=== PATIENT | female | born 1995 | race Caucasian/White ===

== ENCOUNTER 2025-05-19 10:56 | Outpatient (REF) | payer MEDICAID, SELFPAY ==
--- OUTSIDE RECORDS SUMMARY | 2025-05-19 09:15 | XMS_ITS | Encounter Summary ---
Author Organization [employer] Address [address] [facility] 7 [place] [address] Care Team Providers Care Credentialing Specialist Name Role Phone Jenny Moore DO Primary Care Provider [phone] Encounter Details Date Type Department Care Team (Late st Contact Info) Description 05/19/2025 9:15 AM EST Office Visit [facility] [address], [place] [phone] Jenny Moore DO [address] [place], [place] [phone] Routine history and physical examination of adult (Primary Dx); Sensorineural hearing loss (SNHL) of both ears; BMI 24.0-24.9, adult Social History Tobacco Use Types Packs/Day Years Used Date Smoking Tobacco: Never Smokeless Tobacco: Never Tobacco Cessation:Counseling Given: Not Answered Depression Answer Date Recorded Patient Health Questionnaire-9 Score 10 05/19/2025 Patient Health Questionnaire-9 Score 10 05/19/2025 Last PHQ-9: Questionnaire Data Not on file 1 07/20/2024 Depression Answer Date Recorded Patient Health Questionnaire-2 Score 3 05/19/2025 Comments No Sex and Gender Information Value Date Recorded Sex Assigned at Unknown 05/06/2025 9:02 AM EST Legal Sex Female 12:05 PM EDT Gender Identity Choose not to disclose 9:02 AM EST Sexual Orientation Don't know 05/06/2025 9: 02 AM EST documented as of this encounter Last Filed Vital Signs Vital Sign Reading Time Taken Comments Blood Pressure 118/70 05/19/2025 9:19 AM EST Pulse 89 05/19/2025 9:19 AM EST Temperature 36.9 C (98.4 F) 05/19/2025 9:19 AM EST Respiratory Rate 21 05/19/2025 9:19 AM EST Oxygen Saturation 100% 05/19/2025 9:19 AM EST Inhaled Oxygen Concentration - - Weight 64.4 kg (142 lb) 05/19/2025 9:19 AM EST Height 162.6 cm (5' 4 ) 05/19/2025 9:19 AM EST Body Mass Index 24.37 05/19/2025 9:19 AM EST documented in this encounter Functional Status * Over the past 2 weeks, how often have you been bothered by any of the following problems? Question Answer Date of Assessment Author Patient Health Questionnaire -2 Score 3 05/19/2025 10:17 AM EST Armida Boyce MA * Little interest or pleasure in doing things Answer Date of Assessment Author More than half the days 05/19/2025 10:17 AM EST Armida Boyce MA * Feeling down, depressed, or hopeless Answer Date of Assessment Author Several days 05/19/2025 10:17 AM EST Armida Boyce MA * Trouble falling or staying asleep, or sleeping too much Answer Date of Assessment Author Not at all 05/19/2025 10:17 AM EST Armida Boyce MA * Feeling tired or having little energy Answer Date of Assessment Author Not at all 05/19/2025 10:17 AM EST Armida Boyce MA * Poor appetite or overeating Answer Date of Assessment Author Nearly every day 05/19/2025 10:17 AM EST Armida Boyce MA * Feeling bad about yourself - or that you are a failure or have let yourself or your family down Answer Date of Assessment Author Nearly every day 05/19/2025 10:17 AM EST Armida Boyce MA * Trouble concentrating on things, such as reading the newspaper or watching television Answer Date of Assessment Author Not at all 05/19/2025 10:17 AM Armida Gray MA * Moving or speaking so slowly that other people could have noticed? Or the opposite - being so fidgety or restless that you have been moving around a lot more than usual. Answer Date of Assessment Author Several days 05/19/2025 10:17 AM Armida Gray MA * Thoughts that you would be better off or hurting yourself in some way Answer Date of Assessment Author Not at all 05/19/2025 10:17 AM Armida Gray MA * Patient Health Questionnaire-9 Score Answer Date of Assessment Author 10 05/19/2025 10:17 AM Armida Gray MA * Over the last 2 weeks, how often have you been bothered by any of the following problems? Question Answer Date of Assessment Author Feeling nervous, anxious, or on edge 0 05/19/2025 10:16 AM Armida Gray MA Not being able to stop or co ntrol worrying 0 05/19/2025 10:16 AM Armida Gray MA Worrying too much about diff erent things 1 05/19/2025 10:16 AM Armida Gray MA Trouble relaxing 0 05/19/2025 10:16 AM Armida Gray MA Being so restless that it is hard to sit still 0 05/19/2025 10:16 AM Armida Gray MA Becoming easily annoyed or irritable 1 05/19/2025 10:16 AM Armida Gray MA Feeling afraid as if somethi ng awful might happen 0 05/19/2025 10:16 AM Armida Gray MA JEFE-7 Total Score 2 05/19/2025 10:16 AM Armida Gray MA * How difficult have these problems made it for you to do your work, take care of things at home, or get along with other people? Answer Date of Assessment Author Somewhat difficult 05/19/2025 10:17 AM Armida Franklin MA documented as of this encounter Plan of Treatment Scheduled Orders Name Type Priority Associated Diagnoses Orde r Schedule T4, Free Lab Routine Routine history and physical examination of adult Expected: 05/19/2025 (Approximate), Expires: 05/19/2026 Lipid Panel, Standard Lab Routine Routine history and physical examination of adult Expected: 05/19/2025 (Approximate), Expires: 05/19/2026 TSH Lab Routine Routine history and physical examination of adult Expected: 05/19/2025 (Approximate), Expires: 05/19/2026 Vitamin D, 25-Hydroxy, Total, Immunoassay Lab Routine Routine history and physical examination of adult Expected: 05/19/2025 (Approximate), Expires: 05/19/2026 Hepatic Function Panel Lab Routine Routine history and physical examination of adult Expected: 05/19/2025 (Approximate), Expires: 05/19/2026 Hemoglobin A1c Lab Routine Routine history and physical examination of adult Expected: 05/19/2025 (Approximate), Expires: 05/19/2026 CBC Lab Routine Routine history and physical examination of adult Expected: 05/19/2025, Expires: 05/19/2026 Basic Metabolic Panel Lab Routine Routine history and physical examination of adult Expected: 05/19/2025 (Approximate), Expires: 05/19/2026 Hepatitis B surface antigen, EIA Lab Routine Routine history and physical examination of adult Expected: 05/19/2025 (Approximate), Expires: 05/19/2026 Chlamydia/N. Gonorrhoeae RNA, TMA, Urogenitial Microbiology Routine Routine history and physical examination of adult Ordered: 05/19/2025 HIV-1/2 Antigen and Antibodies, Fourth Generation, with Reflexes Lab Routine Routine history and physical examination of adult Expected: 05/19/2025 (Approximate), Expires: 05/19/2026 Hepatitis C Antibody with Reflex to HCV, RNA, Quantitative, Real-Time PCR Lab Routine Routine history and physical examination of adult Expected: 05/19/2025, Expires: 05/19/2026 RPR (Monitor) with Reflex to Titer Lab Routine Routine history and physical examination of adult Expected: 05/19/2025, Expires: 05/19/2026 Hepatitis B Surface Antibody, Qualitative Lab Routine Routine history and physical examination of adult Expected: 05/19/2025 (Approximate), Expires: 05/19/2026 Varicella zoster antibody, IgG Lab Routine Routine history and physical examination of adult Expected: 05/19/2025 (Approximate), Expires: 05/19/2026 Measles, Mumps, and Rubella (MMR) Antibodies (IgG) Panel, Immune Status Lab Routine Routine history and physical examination of adult Expected: 05/19/2025 (Approximate), Expires: 05/19/2026 Herpes Simplex Virus 1 and 2 (IgG), Type-Specific Antibodies Lab Routine Routine history and physical examination of adult Expected: 05/19/2025 (Approximate), Expires: 05/19/2026 Hepatitis A Antibody, Total Lab Routine Routine history and physical examination of adult Expected: 05/19/2025 (Approximate), Expires: 05/19/2026 Hepatitis B Core Antibody, Total Lab Routine Routine history and physical examination of adult Expected: 05/19/2025 (Approximate), Expires: 05/19/2026 T-SPOT .TB Lab Routine Routine history and physical examination of adult Expected: 05/19/2025 (Approximate), Expires: 05/19/2026 documented as of this encounter Visit Diagnoses Diagnosis Routine history and physical examination of adult- Primary Sensorineural hearing loss (SNHL) of both ears BMI 24.0-24.9, adult documented in this encounter Additional Health Concerns Assessment Noted Time PHQ-9 Depression Total Score: 10 025 10:17 AM EST documented as of this encounter Care Teams Credentialing Specialist Relationship Specialty Start Date End Date Jenny Moore DO [address] [place] [id number] PCP - General Family Medicine 05/19/25 documented as of this encounter
[2025-05-19 13:53] LABS: Hematocrit 39.2 % (37.0-47.0); Hemoglobin 12.4 g/dl (12.0-16.0); Mean Corpuscular HGB Conc 31.6 g/dl (31.0-35.0); Mean Corpuscular Hemoglobin 25.9 pg (27.0-33.0); Mean Corpuscular Volume 81.8 fL (80.0-98.0); NRBC Abs Auto 0.000 X10*3/uL (0.0-0.012); NRBC Pct Auto 0.0 /100WBC (0.0-0.2); Platelet Count 461 X10*3/uL (160-400); Red Blood Count 4.79 X10*6/uL (4.20-5.50); White Blood Count 8.7 X10*3/uL (4.8-10.8)
--- OUTSIDE RECORDS SUMMARY | 2025-05-19 13:53 | XMS_ITS | Clinical Summary ---
Author Organization [address] Address [address] [place] [phone] Care Team Providers Care Cavalry Scout Name Role Phone No, Pcp (Do Not Change Name) Primary Care Provid er Unavailable Allergies No known active allergies Medications ondansetron (ZOFRAN) 4 mg tablet Take 1 tablet (4 mg total) by mouth every 12 (twelve) hours as needed for nausea. 12 tablet Active Additional Information Patient not taking.Reported on 12/09/2021 Active Problems Problem Noted Date Diagnosed Date Sensorineural hearing loss (SNHL) of both ears 0 09/30/2021 Social History Tobacco Use Types Packs/Day Years Used Date Smoking Tobacco: Never Alcohol Use Standard Drinks/Week Comments Never 0 (1 standard drink = 0.6 oz pur e alcohol) Comments Unknown Sex and Gender Information Value Date Recorded Sex Assigned at Female 06/28/2021 11:51 AM EST Legal Sex Female 11:20 AM EDT Gender Identity Female 06/28/2021 11:51 AM EST Sexual Orientation Straight 06/28/2021 11 :51 AM EST Last Filed Vital Signs Vital Sign Reading Time Taken Comments Blood Pressure 125/80 12/09/2021 10:06 AM EDT Pulse 90 12/09/2021 10:06 AM EDT Temperature 36.2 C (97.2 F) 12/09/2021 10:06 AM EDT Respiratory Rate 18 11/18/2020 6:44 PM EDT Oxygen Saturation 99% 12/09/2021 10:06 AM EDT Inhaled Oxygen Concentration - - Weight 64.4 kg (142 lb) 12/09/2021 10:06 AM EDT Height 162.6 cm (5' 4 ) 11/18/2020 6:44 PM EDT Body Mass Index 24.37 11/18/2020 6:44 PM EDT Plan of Treatment Health Maintenance Due Date Last Done Comments HIV screening 11/30/2008 Hepatitis C screening 11/30/2013 Cervical cancer screening 09/02/2023 09/01/2020 Influenza vaccine 12/27/2024 07/02/2018 Covid-19 vaccine series ( season) 2025 Tetanus adult (Td q 10,TDAP once) 07/30/2028 019 RSV Immunization (1 - 1-dose 75+ series) 11/30/2070 Meningococcal B Vaccine Aged Out No l onger eligible based on patient's age to complete this topic Meningococcal Vaccine Aged Out No basil jose a eligible based on patient's age to complete this topic Pneumococcal Vaccine (2 - 49 years) Aged Out No longer eligible b ased on patient's age to complete this topic Insurance [id number] Care Teams Cavalry Scout Relationship Specialty Start Date End Date No, Pcp (Do Not Change Name) PCP - General 03/17/20
--- OUTSIDE RECORDS SUMMARY | 2025-05-19 13:53 | XMS_ITS | Encounter Summary ---
Author Organization [employer] Address [address] [facility] 7 [place] [address] Care Team Providers Care Dock Worker Name Role Phone Jenny Moore DO Primary Care Provider [phone] Reason for Visit * Reason Comments Care Coordination CHW outreach for SDO H housing search-referral completed Encounter Details Date Type Department Care Team (Latest Contact Info) Description 05/19/2025 Patient Outreach [facility] [address] [place], [place] [phone] Jenny Moore DO [address] [place] [address] Care Coordination (CHW outreach for SDOH housing search-referral completed ) Social History Tobacco Use Types Packs/Day Years Used Date Smoking Tobacco: Never Smokeless Tobacco: Never Depression Answer Date Recorded Patient Health Questionnaire-9 [...] AM EST documented as of this encounter Progress Notes * Yamil Black - 05/19/2025 1:03 PM EST CHW Yamil Black, placed outbound call to patient for assistance with SDOH as a referral was received by the provider. Patient's name and were confirmed. Patient screened positive for the following SDOH housing insecurities. CHW referral patient to the list of application mail out to her email address on file. Patient verbalizes understanding, and able to agree with plan to follow up herself. Patient educated on extended clinic hours on Mondays through Wednesdays, and [facility] Lobby of [facility]. Patient provided with after-hours line for [facility], , which offer night time triage service and option to transfer to conference specialist provider if needed. documented in this encounter Plan of Treatment Not on file documented as of this encounter Visit Diagnoses Not on filedocumented in this encounter Additional Health Concerns Assessment Noted Time PHQ-9 Depression Total Score: 10 025 10:17 AM EST documented as of this encounter Care Teams Dock Worker Relationship Specialty Start Date End Date Jenny Moore DO [address] [place] [phone] PCP - General Family Medicine 05/19/25 documented as of this encounter
--- OUTSIDE RECORDS SUMMARY | 2025-05-19 13:53 | XMS_ITS | Clinical Summary ---
Author Organization [employer] Address [address] [place] [address] 7 [place] [address] Care Team Providers Care Data Transcriber Name Role Phone Jenny Moore DO Primary Care Provider [phone] Allergies No known active allergies Active Problems Problem Noted Date Diagnosed Date Generalized anxiety disorder with panic attacks 05/19/2025 Moderate episode of recurren t major depressive disorder (CMS/HCC) 05/19/2025 PTSD (post-traumatic stress disorder) 05/19/2025 Sensorineural hearing loss (SNHL) of both ears 0 09/30/2021 Encounters * This document contains information received from the source organization and may not represent a complete record from that organization. Date Type Department Care Team Description 05/19/2025 9:15 AM EST Office Visit [address] [id number] Jenny Moore DO Routine history and physical examination of adult (Primary Dx); Sensorineural hearing loss (SNHL) of both ears; BMI 24.0-24.9, adult 05/19/2025 Patient Outreach [address] [phone] Jenny Moore DO Care Coordination (CHW outreach for SDOH housing search-referral completed ) 05/19/2025 Travel 05/16/[address] [address] Jenny Moore DO Chart Prep 05/12/2025 Travel 05/08/2025 Patient Outreach [address] [address] Jenny Moore DO Pre-visit Planning ((Unable to reach for PVP screening, LVM) to be completed in office ) 04/30/[address] [facility] () Department [address] [place] [phone] Provider, Population Health Generic 04/11/2025 Telephone [facility] [address] [place] [address] Kade Esquivel MD Appointment Request 03/28/2025 Telephone [facility] [address] [place], [place] [phone] aKde Esquivel MD telephone call from Last 3 Months Immunizations Immunization Administration Dates Next Due DTaP 05/15/2000, 7,09/11/1996,04/19,02/01/1996 HPV, Quadrivalent 03/25/2011,02/19/2010,01/28/20 09 Hep B, Unspecified 04/09/1997,02/01/1996, 996 HepB-CpG 03/28/2025,03/02/2023 HiB, unspecified 04/09/1998, 7,04/19/1996,01/31 IPV 05/15/2000, 7,04/19/1996,01/31 Influenza Injectable Quadriv alant Preservative Free IIV4 MDCK 09/01/2020 Influenza Whole 05/15/2000 Influenza, seasonal, injecta ble, preservative free 03/28/2025,04/01/2013,03/25/2011 MMR 01/07/2002,05/15/2000 Meningococcal MPSV4 01/27/2009 Pneumococcal Conjugate PCV 7 05/15/2000 Tdap 03/28/2025,,01/16/2017,01/27 Varicella 03/25/2011,08/23/1997 Social History Tobacco Use Types Packs/Day Years [...] Don't know 05/06/2025 9: 02 AM EST Last Filed Vital Signs Vital [...] Mass Index 24.37 05/19/2025 9:19 AM EST Plan of Treatment Health Maintenance Due Date Last Done Comments HIV Screening 1995 SDOH Screening 1995 Family Planning (PISQ) 11/30/2010 Hepatitis C Screening 11/30/2013 Pap Smear 11/30/2016 Depression Monitoring 11/17/2025 05/19/2025, 025 Disability Screening 05/12/2026 05/12/2025 Alcohol/Substance Use Screening 05/19/2026 05/19/2025 Tobacco Screening 05/19/2026 05/19/2025 DTaP/Tdap/Td Vaccines (10 - Td or Tdap) 03/28/2035 03/28/2025, 01/07/2021, 01/16/2017, Additional history exists Zoster Vaccines (1 of 2) 11/30/2045 RSV Patients and Patients Aged 60 years or older (1 - 1-dose 75+ series) 11/30/2070 HIB Vaccines Completed 04/09/1998, 08/27, 04/19/1996, Additional history exists IPV Vaccines Completed 05/15/2000, 03/29, 04/19/1996, Additional history exists Pneumococcal Vaccine: Pediatrics (0 to 5 Years) and At-Risk Patients (6 to 49) Years Aged Out 05/15/2000 No longer eligible based on patient's age to complete this topic Meningococcal Vaccine Aged Out 01/27/2009 No basil jose a eligible based on patient's age to complete this topic HPV Vaccines Completed 03/25/2011, 01/28, 01/27/2009 COVID-19 Vaccine Completed 03/28/2025, 06/2020, 10/07/2020 Hepatitis B Vaccines Completed 03/28/2025, 03/02/2023, 04/09/1997, Additional history exists Influenza Vaccine Completed 03/28/2025, , 04/01/2013, Additional history exists Hepatitis A Vaccines Aged Out No long er eligible based on patient's age to complete this topic Meningococcal B Vaccine Aged Out No l onger eligible based on patient's age to complete this topic RSV under 20 months Aged Out No longe r eligible based on patient's age to complete this topic Rotavirus Vaccines Aged Out No longer eligible based on patient's age to complete this topic Insurance [facility] C3 Care Teams Data Transcriber Relationship Specialty Start Date End Date Jenny Moore DO [address] [place] [address] PCP - General Family Medicine 05/19/25
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
--- OUTSIDE RECORDS SUMMARY | 2025-05-19 13:53 | XMS_ITS ---
[facility] Name [facility] Organization Unknown Results Test Name/Text Value Interpretation Date Range Source HCG SerPl-aCnc 32403.0 mIU/mL Normal 05/18/2024 [facility] Calcium SerPl-mCnc 9.2 mg/dL Normal 05/18/2024 8.4 - 10.2 [facility] eGFRcr SerPlBld CKD-EPI 2020 121.0 mL/min/1.73m2 Normal 05/18/2024 - [facility] ALP SerPl-cCnc 55.0 unit/L Normal 05/18/2024 34 - 104 [facility] Sodium SerPl-sCnc 132.0 mmol/L Below low normal 05/18/2024 1 35 - 145 [facility] Potassium SerPl-sCnc 4.0 mmol/L Normal 05/18/2024 3.5 - 5 .1 [facility] AST SerPl-cCnc 14.0 unit/L Normal 05/18/2024 5 - 40 [facility] Albumin SerPl-mCnc 4.4 g/dL Normal 05/18/2024 3.5 - 5 [facility] Anion Gap SerPl-sCnc 6.0 Normal 05/18/2024 5 - 14 [facility] Glucose SerPl-mCnc 89.0 mg/dL Normal 05/18/2024 70 - 199 [facility] Prot SerPl-mCnc 7.5 g/dL Normal 05/18/2024 6.4 - 8.5 [facility] Bilirub SerPl-mCnc 0.6 mg/dL Normal 05/18/2024 0.3 - 1 [facility] Chloride SerPl-sCnc 101.0 mmol/L Normal 05/18/2024 98 - 1 07 [facility] Creat SerPl-mCnc 0.7 mg/dL Normal 05/18/2024 0.5 - 1 [facility] CO2 SerPl-sCnc 25.0 mmol/L Normal 05/18/2024 24 - 32 [facility] ALT SerPl-cCnc 10.0 unit/L Normal 05/18/2024 7 - 52 [facility] BUN SerPl-mCnc 11.0 mg/dL Normal 05/18/2024 7 - 17 [facility] BUN/Creat SerPl 15.7 Normal 05/18/2024 12 - 20 [facility] Magnesium SerPl-mCnc 1.9 mg/dL Normal 05/18/2024 1.7 - 2. 8 [facility] Platelet # Bld Auto 362.0 K/mcL Normal 05/18/2024 150 - 4 50 [facility] Basophils/leuk NFr Bld Auto 0.2 % Normal 05/18/2024 0 - 2 [facility] RDW RBC Auto-Rto 18.1 % Above high normal 05/18/2024 12.1 - 16.2 [facility] Neutrophils # Bld Auto 5.6 K/mcL Normal 05/18/2024 1.8 - 7.8 [facility] Lymphocytes/leuk NFr Bld Auto 21.7 % Normal 05/18/2024 20 - 48 [facility] MCHC RBC Auto-mCnc 33.3 g/dL Normal 05/18/2024 32 - 36 [facility] Eosinophil/leuk NFr Bld Auto 0.1 % Normal 05/18/2024 0 - 6 [facility] Eosinophil # Bld Auto 0.0 K/mcL Normal 05/18/2024 0 - 0.5 [facility] Hct VFr Bld Auto 35.6 % Below low normal 05/18/2024 37 - 47 [facility] PMV Bld Auto 7.9 FL Normal 05/18/2024 7.4 - 11.4 [facility] Hgb Bld-mCnc 11.9 g/dL Below low normal 05/18/2024 12.5 - 16 [facility] WBC # Bld Auto 8.1 K/mcL Normal 05/18/2024 4 - 10.5 [facility] Monocytes # Bld Auto 0.7 K/mcL Normal 05/18/2024 0 - 0.8 [facility] Monocytes/leuk NFr Bld Auto 9.0 % Normal 05/18/2024 2 - 12 [facility] Lymphocytes # Bld Auto 1.8 K/mcL Normal 05/18/2024 1 - 3.2 [facility] RBC # Bld Auto 4.69 M/mcL Normal 05/18/2024 4.2 - 5.4 [facility] Basophils # Bld Auto 0.0 K/mcL Normal 05/18/2024 0 - 0.2 [facility] MCH RBC Qn Auto 25.3 pcg Normal 05/18/2024 25 - 33 [facility] MCV RBC Auto 75.9 FL Below low normal 05/18/2024 78 - 100 [facility] Neutrophils/leuk NFr Bld Auto 69.0 % Normal 05/18/2024 44 - 74 [facility] History of Medication Use Medication Directions Dispensed Refills Start Date End Date Stat us ondansetron ODT (ZOFRAN-ODT) 8 mg disintegrating tablet Dissolve 1 tablet (8 mg total) on top of the tongue every 8 (eight) hours if needed for nausea or vomiting for up to 7 days. 05/18/2024 05/26/2024 active lactated Ringer's bolus 1,000 mL 1,000 mL, intravenous, at 1,000 mL/hr, Administer over 1 Hours, Once, On 05/18/24 at 2036, For 1 dose 05/18/2024 05/19/2024 completed ondansetron (PF) (ZOFRAN) injection 4 mg 4 mg, intravenous, Once as needed, nausea, vomiting, Starting on 05/18/24 at 1352, For 1 dose 05/18/2024 05/19/2024 completed metoclopramide (REGLAN) injection 10 mg 10 mg, intravenous, Once, On 05/18/24 at 1306, For 1 dose, Doses LESS than or equal to 10 mg can be given IV push undiluted over 1 minute 05/18/2024 05/18/2024 completed Problems Problem Status Onset Date Problem Type Date of Resolution Source Nausea and vomiting, unspecified vomiting type active EncounterDiagnosisAct [facility] Less than 8 weeks gestation of active EncounterDiagnosisAct [facility] Encounters Encounter Type Encounter Reason Primary Diagnosis Location Date Emergency Vomiting, Less than 8 w eeks gestation of [facility] 05/18/2024 [facility]2023 [facility]/12/2023 Care Team Organization Name Specialty Phone Email Start Date End Da te [facility] 05/22/2024 [facility] NO PHYSICIAN Primary Care 05/18/2024 [id number] 03/30/2022 06/29/2024 [facility] 11/18/2020 0 11/18/2020
--- OUTSIDE RECORDS SUMMARY | 2025-05-19 13:53 | XMS_ITS | Encounter Summary ---
Author Organization [facility] Address [address] [place] [address] [address] [place] [address] Care Team Providers Care Mechanical Engineer Name Role Phone Jenny Moore DO Primary Care Provider Encounter Details Date Type Department Care Team (Latest Contact Info) Description 05/19/2025 Travel Social History Tobacco Use Types Packs/Day Years [...] AM EST documented as of this encounter Plan of Treatment Not on file documented as of this encounter Visit Diagnoses Not on filedocumented in this encounter Additional Health Concerns Assessment Noted Time PHQ-9 Depression Total Score: 10 025 10:17 AM EST documented as of this encounter Care Teams Mechanical Engineer Relationship Specialty Start Date End Date Jenny Moore DO [address] [place] [id number] PCP - General Family Medicine 05/19/25 documented as of this encounter
--- OUTSIDE RECORDS SUMMARY | 2025-05-19 13:53 | XMS_ITS | Encounter Summary ---
Author Organization [employer] Address [address] [place] [address] [address] [place] [address] Care Team Providers Care Graffiti Cleaner Name Role Phone Unavailable Primary Care Provider Unavailabl e Reason for Visit * Reason Onset Date Comments Chart Prep 05/16/2025 Encounter Details Date Type Department Care Team ([facility] st Contact Info) Description 05/16/2025 Telephone [facility] [address] [place], [place] [phone] Jenny Moore DO [address] [place], [place] [phone] Chart Prep Social History Tobacco Use Types Packs/Day Years Used Date Smoking Tobacco: Never Assessed Comments Unknown Sex and Gender Information Value Date Recorded Sex Assigned at Unknown 05/06/2025 9:02 AM EST Legal Sex Female 12:05 PM EDT Gender Identity Choose not to disclose 9:02 AM EST Sexual Orientation Don't know 05/06/2025 9: 02 AM EST documented as of this encounter Miscellaneous Notes * Telephone Encounter - Armida Boyce MA - 05/16/2025 8:43 AM EST Chart Prep Labs: not applicable Images: not applicable Referrals: not applicable Vaccines due: no updates Screenings: pap smear, LMP, PISQ, and HIV Screening, Hep C Screening Overdue care gaps: SBIRT, SDOH, PHQ-9, and JEFE-7 documented in this encounter Plan of Treatment Not on file documented as of this encounter Visit Diagnoses Not on filedocumented in this encounter
--- OUTSIDE RECORDS SUMMARY | 2025-05-19 13:53 | XMS_ITS | Encounter Summary ---
Author Organization [employer] Address [address] [place] [id number] Care Team Providers Care Milk Deliverer Name Role Phone Jenny Moore DO Primary Care Provider Reason for Visit * Reason Onset Date Comments Appointment Request 04/11/2025 Encounter Details Date Type Department Care Team ([facility] st Contact Info) Description 04/11/2025 Telephone [facility] [address] [place], [place] [phone] Kade Esquivel MD [address] [place], [place] [phone] Appointment Request Social History Tobacco Use Types Packs/Day Years [...] encounter Miscellaneous Notes * Telephone Encounter - Tash Luque - 04/11/2025 2:25 PM EST TC from caller requesting NEW PATIENT visit . DX : N/A Medical Concern: hearing aids Insurance name : [employer] Location : [facility] Demographic information updated documented in this encounter Plan of Treatment Not on file documented as of this encounter Visit Diagnoses Not on filedocumented in this encounter Care Teams Milk Deliverer Relationship Specialty Start Date End Date Jenny Moore DO [address] [place] [phone] PCP - General Family Medicine 05/19/25 documented as of this encounter
[2025-05-19 16:28] LABS: Anion Gap 14 (12-20); Blood Urea Nitrogen 12 mg/dL (9-16); Calcium 9.8 mg/dL (8.4-10.2); Carbon Dioxide 28 mmol/L (22-29); Chloride 104 mmol/L (96-108); Estimated Glomerular Filt Rate > 60; Potassium 3.7 mmol/L (3.3-5.1); Sodium 142 mmol/L (135-145)
[2025-05-19 16:29] LABS: Alanine Aminotransferase 8 U/L (0-31); Albumin Level 4.8 g/dL (3.5-5.0); Alkaline Phosphatase 81 U/L (39-117); Aspartate Amino Transferase 21 U/L (5-31); Cholesterol 195 mg/dL (<200); Free T4 (Free Thyroxine) 1.17 ng/dL (0.71-1.85); HDL Cholesterol 59 mg/dL (>40); Thyroid Stimulating Hormone 1.08 uIU/mL (0.32-4.0); Total Protein 7.8 g/dL (6.5-8.0); Triglycerides 53 mg/dL (<150)
[2025-05-20 04:07] LABS: HBS Num1 > 1000.00 mIU/mL (0-7.99); HBc Num1 0.08 S/CO (0.00-0.79); HBsAGNum1 0.41 S/CO (0.00-0.99); HIV Num 1 0.08 S/CO (0.00-0.99); Hepatitis B Surface Antigen Negative (Negative); ~HepC Num1 0.16 S/CO (0.00-0.79); ~Hepatitis B Surface Antibody REACTIVE (Nonreactive); ~Hepatitis C Antibody Nonreactive (Nonreactive)
[2025-05-20 14:28] LABS: Rubeola IgG (Measles) 145.00 AU/mL
== END 2025-05-19 10:57 | disposition home or self-care (01) ==
LOC: HO.HHCL 10:56
PROVIDERS: PCP Family Medicine; Visit Provider Family Medicine
DX: Z01.84 Encounter for antibody response examination (principal); Z11.4 Encounter for screening for human immunodeficiency virus [HIV]; Z11.59 Encounter for screening for other viral diseases; Z11.1 Encounter for screening for respiratory tuberculosis
CPT/HCPCS: 36415; 80048; 80061; 80076; 82306; 83036; 84439; 84443; 85027; 86481; 86592; 86695; 86696; 86704; 86706; 86708; 86735; 86762; 86765; 86787; 86803; 87340; 87389